=== PATIENT | male | born 1985 | race Caucasian/White ===

== ENCOUNTER 2017-10-11 21:45 | Emergency (ER) | payer OTHER ==
[~2017-10-11] VITALS: Ht 175.3 cm; Wt 93.8 kg
[2017-10-11] MEDS ORDERED: KETOROLAC 30 MG/1 ML IM ONE (22:30)
[2017-10-11] MEDS ORDERED: KETOROLAC 30 MG/1 ML ONE (22:34)
[2017-10-11 23:53] VITALS: BP 113/74
== END 2017-10-11 23:55 | disposition home or self-care (01) ==
LOC: ED 23:19
DX: K40.90 Unilateral inguinal hernia, without obstruction or gangrene, not specified as recurrent (principal)
CPT/HCPCS: 74021; 96372; 99284; J1885

== ENCOUNTER 2019-12-09 19:08 | Inpatient (IN) | payer OTHER ==
[~2019-12-09] VITALS: Ht 175.3 cm; Wt 90.6 kg
--- NOTE | 2019-12-09 19:41 | NUR ---
Pt here for abd pain that feels similar to the last time he had a diverticulitis flare up. Pt reprots n/v/d and sevee jolts of pain. Pt denies any trauma. Pt is able to ambulate without difficulty. Pt reports no blood in stool. Is tender to palpation. Pt resting in bed and connected to the monitors.
[2019-12-09] MEDS ORDERED: ONDANSETRON 2MG/ML, 2ML ONE (19:48)
[2019-12-09] MEDS ORDERED: MORPHINE SULFATE 4 MG/ML, 1ML ONE ×2 (19:49→22:15)
[2019-12-09] MEDS ORDERED: ONDANSETRON 2MG/ML, 2ML IVPush ONE (20:00)
[2019-12-09] MEDS ORDERED: SODIUM CHLORIDE 0.9% 1,000ML IVBOLUS ONE (20:00)
[2019-12-09] MEDS ORDERED: SODIUM CHLORIDE FLUSH 10ML SYR IVF ONE (20:00)
[2019-12-09] MEDS ORDERED: CEFTRIAXONE PMX 1GM/50ML 50 ML IV ONE (20:00)
[2019-12-09] MEDS ORDERED: METRONIDAZOLE PMX 500MG/100ML 100 ML IV ONE (20:00)
[2019-12-09] MEDS: MORPHINE SULFATE 4 MG/ML, 1ML IVPush PRN ×2 (20:04→22:18)
[2019-12-09] MEDS ORDERED: CEFTRIAXONE PMX 1GM/50ML 50 ML ONE (20:06)
[2019-12-09] MEDS ORDERED: METRONIDAZOLE PMX 500MG/100ML 100 ML ONE (20:06)
--- NOTE | 2019-12-09 20:10 | NUR ---
Ptmedicated per emar, IV abx started after blood cultures collected.
[2019-12-09 20:16] LABS: BASOPHILS # (AUTO) 0.15 x10^3/uL (0-0.1); BASOPHILS % (AUTO) 1 % (0-1); EOSINOPHILS # (AUTO) 0.03 x10^3/uL (0-0.4); EOSINOPHILS % (AUTO) 0 % (1-7); LYMPHOCYTES # (AUTO) 2.28 x10^3/uL (1-3.4); LYMPHOCYTES % (AUTO) 17 % (22-44); MD NO; MEAN CORPUSCULAR HEMOGLOBIN 30.3 pg (27.5-34.5); MEAN CORPUSCULAR HGB CONC 33.9 g/dL (33.2-36.2); MEAN CORPUSCULAR VOLUME 89.4 fL (81-97); MEAN PLATELET VOLUME 6.5 fL (7.4-10.4); MONOCYTES # (AUTO) 0.82 x10^3/uL (0.2-0.8); MONOCYTES % (AUTO) 6 % (2-9); NEUTROPHILS # (AUTO) 10.27 x10^3/uL (1.8-6.8); NEUTROPHILS % (AUTO) 76 % (42-75); PLATELET COUNT 331 x10^3/uL (130-400); RED BLOOD COUNT 4.92 x10^6/uL (4.38-5.82); RED CELL DISTRIBUTION WIDTH 12.8 % (9.4-14.8)
[2019-12-09 20:27] LABS: ALANINE AMINOTRANSFERASE 30 U/L (12-78); ALBUMIN 4.2 g/dL (3.4-5.0); ANION GAP 5 mmol/L (5-15); CALCIUM 9.4 mg/dL (8.5-10.1); CHLORIDE 107 mmol/L (98-107); CREATININE 1.15 mg/dL (0.7-1.3)
[2019-12-09 20:28] LABS: ALKALINE PHOSPHATASE 66 U/L (45-117); TOTAL PROTEIN 8.4 g/dL (6.4-8.2)
--- NOTE | 2019-12-09 20:45 | NUR ---
Second abx started.
--- NOTE | 2019-12-09 20:46 | NUR ---
Pt to CT
[2019-12-09] MEDS ORDERED: ACETAMINOPHEN 325 MG TABLET PO ONE (21:30)
[2019-12-09 21:36] LABS: MICROSCOPIC NOT IND
[2019-12-09] MEDS ORDERED: ACETAMINOPHEN 325 MG TABLET ONE (21:45)
--- NOTE | 2019-12-09 22:13 | NUR ---
Pt started having severe gi distress, taken to restroom and pt taken back to room.
[2019-12-09] MEDS ORDERED: OMNIPAQUE 350 MG/ML, 100ML BOTTLE ONE (23:26)
--- NOTE | 2019-12-09 23:26 | NUR ---
Report called to Penelope BONE
[2019-12-09] MEDS ORDERED: ACETAMINOPHEN 325 MG TABLET PO PRN (23:30)
[2019-12-09] MEDS ORDERED: ONDANSETRON 2MG/ML, 2ML IVPush PRN (23:30)
[2019-12-09] MEDS ORDERED: morphine SULFATE 10 MG/ML, 1ML IVPush PRN (23:30)
[2019-12-09] MEDS ORDERED: IBUP200T49 PO (23:50)
[2019-12-09] MEDS ORDERED: ACET650S21 PO (23:50)
[2019-12-10] MEDS: OXYcodone/APAP 5/325MG TABLET PO PRN ×4 (00:06→17:03)
[2019-12-10 00:10] VITALS: BP 137/89
[2019-12-10] MEDS: SODIUM CHLORIDE 0.9% 1,000 ML IV SCH ×3 (00:37→19:59)
[2019-12-10] MEDS: METRONIDAZOLE PMX 500MG/100ML 100 ML IV SCH ×3 (04:28→20:42)
[2019-12-10 05:26] LABS: BASOPHILS # (AUTO) 0.04 x10^3/uL (0-0.1); BASOPHILS % (AUTO) 0 % (0-1); EOSINOPHILS # (AUTO) 0.05 x10^3/uL (0-0.4); EOSINOPHILS % (AUTO) 0 % (1-7); LYMPHOCYTES % (AUTO) 13 % (22-44); MD NO; MEAN CORPUSCULAR HEMOGLOBIN 30.8 pg (27.5-34.5); MEAN CORPUSCULAR HGB CONC 33.8 g/dL (33.2-36.2); MEAN CORPUSCULAR VOLUME 91.2 fL (81-97); MEAN PLATELET VOLUME 6.1 fL (7.4-10.4); MONOCYTES # (AUTO) 1.05 x10^3/uL (0.2-0.8); MONOCYTES % (AUTO) 8 % (2-9); NEUTROPHILS # (AUTO) 10.05 x10^3/uL (1.8-6.8); NEUTROPHILS % (AUTO) 79 % (42-75); PLATELET COUNT 290 x10^3/uL (130-400); RED BLOOD COUNT 4.57 x10^6/uL (4.38-5.82); RED CELL DISTRIBUTION WIDTH 12.7 % (9.4-14.8)
[2019-12-10 05:31] LABS: ANION GAP 6 mmol/L (5-15); CALCIUM 8.6 mg/dL (8.5-10.1); CHLORIDE 108 mmol/L (98-107); CREATININE 1.03 mg/dL (0.7-1.3)
[2019-12-10] MEDS: PIPERACILLIN/TAZO/PMX 3.375GM 50 ML IV SCH ×3 (07:43→19:58)
[2019-12-10 07:46] VITALS: BP 117/67
[2019-12-10 13:41] VITALS: BP 115/74
[2019-12-10] MEDS ORDERED: CEFTRIAXONE PMX 1GM/50ML 50 ML IV SCH (20:00)
[2019-12-10 20:33] VITALS: BP 112/72
[2019-12-11] MEDS: PIPERACILLIN/TAZO/PMX 3.375GM 50 ML IV SCH (01:50)
[2019-12-11 01:54] VITALS: BP 110/71
[2019-12-11] MEDS: METRONIDAZOLE PMX 500MG/100ML 100 ML IV SCH ×2 (04:05→12:36)
[2019-12-11 05:38] LABS: ANION GAP 3 mmol/L (5-15); CALCIUM 8.2 mg/dL (8.5-10.1); CHLORIDE 108 mmol/L (98-107); CREATININE 1.17 mg/dL (0.7-1.3)
[2019-12-11 05:39] LABS: BASOPHILS # (AUTO) 0.05 x10^3/uL (0-0.1); BASOPHILS % (AUTO) 1 % (0-1); EOSINOPHILS # (AUTO) 0.16 x10^3/uL (0-0.4); EOSINOPHILS % (AUTO) 2 % (1-7); LYMPHOCYTES # (AUTO) 1.77 x10^3/uL (1-3.4); LYMPHOCYTES % (AUTO) 20 % (22-44); MD NO; MEAN CORPUSCULAR HEMOGLOBIN 30.6 pg (27.5-34.5); MEAN CORPUSCULAR HGB CONC 33.7 g/dL (33.2-36.2); MEAN CORPUSCULAR VOLUME 90.8 fL (81-97); MEAN PLATELET VOLUME 6.5 fL (7.4-10.4); MONOCYTES # (AUTO) 0.67 x10^3/uL (0.2-0.8); MONOCYTES % (AUTO) 8 % (2-9); NEUTROPHILS # (AUTO) 6.14 x10^3/uL (1.8-6.8); NEUTROPHILS % (AUTO) 70 % (42-75); PLATELET COUNT 263 x10^3/uL (130-400); RED BLOOD COUNT 4.23 x10^6/uL (4.38-5.82); RED CELL DISTRIBUTION WIDTH 12.7 % (9.4-14.8)
[2019-12-11 07:56] VITALS: BP 108/68
[2019-12-11] MEDS: SODIUM CHLORIDE 0.9% 1,000 ML IV SCH (08:26)
[2019-12-11] MEDS ORDERED: ONDA4TAB7 PO (11:57)
[2019-12-11] MEDS ORDERED: CIPR500T87 PO (11:57)
[2019-12-11] MEDS ORDERED: METR500T PO (11:57)
[2019-12-11] MEDS ORDERED: OXYcodone/APAP 5/325MG PO (11:57)
[2019-12-11] MEDS ORDERED: CIPR250T27 PO ×2 (12:05)
[2019-12-11 12:32] VITALS: BP 116/74
== END 2019-12-11 14:28 | disposition home or self-care (01) | DRG 872 ==
LOC: ED 22:45 → 4NE 23:37 → ED 23:58 → 4NE 23:59 → 3N 12-11 06:00 → DCLOUNGE 12-11 14:22
PROVIDERS: ADMIT Internal Medicine; ATTEND Hospitalist
DX: A41.9 Sepsis, unspecified organism (principal); K57.12 Diverticulitis of small intestine without perforation or abscess without bleeding; Z79.899 Other long term (current) drug therapy; Z79.82 Long term (current) use of aspirin; Z83.3 Family history of diabetes mellitus; Z87.442 Personal history of urinary calculi
CPT/HCPCS: 36415; 74177; 80048; 80053; 81003; 83605; 83735; 84100; 85025; 87040; G0378; J0696; J2405; J2543; Q9967; J2270; J7030

== ENCOUNTER 2020-01-09 15:25 | Emergency (ER) | payer OTHER ==
[~2020-01-09] VITALS: Ht 175.3 cm; Wt 82.0 kg
[~2020-01-09 15:25] MED LIST: ACET650S21 PO; CIPR250T27 PO; CIPR500T87 PO; IBUP200T49 PO; METR500T PO; ONDA4TAB7 PO; OXYcodone/APAP 5/325MG PO
[2020-01-09] MEDS ORDERED: SODIUM CHLORIDE FLUSH 10ML SYR IVF ONE (16:00)
[2020-01-09] MEDS ORDERED: ONDANSETRON 2MG/ML, 2ML IVPush ONE (16:00)
--- NOTE | 2020-01-09 16:06 | NUR ---
PT. IS A & O X 4 WITH A GCS OF 15. PT. HAS C/O RIGHT GROIN PAIN X 3 DAYS WITH A HISTORY OF RECENT TX AND HOSPITALIZATION FOR DIVERTICULITIS. HE ALSO REPORTS HERNIA REPAIR TO THE RIGHT GROIN AND A RECENT 20 POUND WEIGHT LOSS IN A MONTH. PT. IS PINK, WARM AND DRY WITH CAP REFILL BRISK, LESS THAN 3 SECONDS. PT. NECK IS MIDLINE WITHOUT JVD NOTED. CHEST RISE AND FALL IS SYMMETRICAL WITH LUNGS CTA THROUGHOUT. PT.'S ABD. IS SOFT AND ROUND WITH BS + X 4 QUADS. PT. IS MOVING ALL EXTREMITIES WNL. PULSES ARE + 2 THROUGHOUT. PT. IS AMBULATORY WITH A STEADY GAIT. UA COLLECTED AND SENT. VSS. LABS WERE OTAINED. PT. IS RESTING WITH THE CALL LIGHT IN PLACE AND SIDERAILS REMAIN UP X 2.
[2020-01-09] MEDS ORDERED: MORPHINE SULFATE 4 MG/ML, 1ML ONE ×2 (16:14→17:30)
[2020-01-09] MEDS ORDERED: ONDANSETRON 2MG/ML, 2ML ONE (16:14)
[2020-01-09] MEDS: MORPHINE SULFATE 4 MG/ML, 1ML IVPush PRN ×2 (16:16→17:32)
[2020-01-09 16:27] LABS: BASOPHILS # (AUTO) 0.03 x10^3/uL (0-0.1); BASOPHILS % (AUTO) 1 % (0-1); EOSINOPHILS # (AUTO) 0.05 x10^3/uL (0-0.4); EOSINOPHILS % (AUTO) 1 % (1-7); LYMPHOCYTES # (AUTO) 1.67 x10^3/uL (1-3.4); LYMPHOCYTES % (AUTO) 31 % (22-44); MD NO; MEAN CORPUSCULAR HEMOGLOBIN 29.9 pg (27.5-34.5); MEAN CORPUSCULAR HGB CONC 33.7 g/dL (33.2-36.2); MEAN PLATELET VOLUME 6.7 fL (7.4-10.4); MONOCYTES # (AUTO) 0.39 x10^3/uL (0.2-0.8); MONOCYTES % (AUTO) 7 % (2-9); NEUTROPHILS # (AUTO) 3.27 x10^3/uL (1.8-6.8); NEUTROPHILS % (AUTO) 60 % (42-75); PLATELET COUNT 327 x10^3/uL (130-400); RED BLOOD COUNT 4.78 x10^6/uL (4.38-5.82); RED CELL DISTRIBUTION WIDTH 13.2 % (9.4-14.8)
[2020-01-09 16:32] LABS: MICROSCOPIC AUTO
[2020-01-09 16:39] LABS: ALBUMIN 3.9 g/dL (3.4-5.0); ANION GAP 7 mmol/L (5-15); CALCIUM 8.6 mg/dL (8.5-10.1); CHLORIDE 106 mmol/L (98-107)
[2020-01-09 16:43] LABS: ALANINE AMINOTRANSFERASE 35 U/L (12-78); ALKALINE PHOSPHATASE 53 U/L (45-117); BILIRUBIN,TOTAL 0.8 mg/dL (0.2-1.0); CREATININE 1.13 mg/dL (0.7-1.3); TOTAL PROTEIN 7.3 g/dL (6.4-8.2)
--- NOTE | 2020-01-09 17:17 | NUR ---
PT. STATES SOME RELIEF FROM PAIN MEDS. PT. IS RESTING WITHOUT CONCERNS. VSS.
--- NOTE | 2020-01-09 17:35 | NUR ---
PT. WAS MEDICATED FOR PAIN AND TAKEN TO ULTRASOUND.
--- NOTE | 2020-01-09 17:50 | NUR ---
REPORT RECEIVED FROM SMITHA JORDAN. PLAN OFCARE DISCUSSED. PATIENT IN ULTRASOUND
--- NOTE | 2020-01-09 18:50 | NUR ---
ALL RESULTS BACK, PATIENT UP FOR RECHECK
--- NOTE | 2020-01-09 19:10 | NUR ---
PAUL LOPEZ TO ROOM FOR RECHECK
--- NOTE | 2020-01-09 19:49 | NUR ---
PATIENT IN CT
[2020-01-09] MEDS ORDERED: OMNIPAQUE 350 MG/ML, 100ML BOTTLE ONE (19:59)
[2020-01-09 21:12] VITALS: BP 116/81
== END 2020-01-09 21:14 | disposition home or self-care (01) ==
LOC: ED 18:42
DX: K57.32 Diverticulitis of large intestine without perforation or abscess without bleeding (principal)
CPT/HCPCS: 36415; 74177; 76870; 80053; 81001; 85025; 87086; 93975; 96374; 96375; 96376; 99285; J2270; J2405; Q9967

== ENCOUNTER → 2020-03-06 | Outpatient (CLI) | payer OTHER ==
[~2020-03-06] MED LIST changes: +OMNIPAQUE 350 MG/ML, 100ML BOTTLE ONE
== END | disposition home or self-care (01) ==
LOC: CFH 13:06
PROVIDERS: ATTEND Internal Medicine
DX: K57.32 Diverticulitis of large intestine without perforation or abscess without bleeding (principal); R93.89 Abnormal findings on diagnostic imaging of other specified body structures; R10.32 Left lower quadrant pain; K57.30 Diverticulosis of large intestine without perforation or abscess without bleeding; R63.4 Abnormal weight loss
CPT/HCPCS: 74177; Q9967

== ENCOUNTER → 2020-05-11 | Outpatient (CLI) | payer OTHER | END | disposition home or self-care (01) | LOC: CFH 10:45 | PROVIDERS: ATTEND Physician Assistant | DX: K57.90 Diverticulosis of intestine, part unspecified, without perforation or abscess without bleeding (principal) | CPT/HCPCS: 74177; Q9967 ==